=== PATIENT | female | born 1965 ===

== ENCOUNTER 2025-08-23 09:14 | Outpatient (CLI) | payer BC, SELFPAY ==
--- NOTE | ~2025-08-23 | US_ITS ---
EXAMINATION: US soft tissue abdomen DATE: 08/23/2025 09:32 INDICATION: Umbilical hernia. TECHNIQUE: Multiple grayscale and Doppler ultrasound images of the abdomen were obtained. COMPARISON: None FINDINGS: There is a small umbilical hernia. IMPRESSION: 1. Small umbilical hernia. Reviewed, dictated and finalized at location E. IMPRESSION: 1. Small umbilical hernia.
== END 2025-08-23 09:15 | disposition home or self-care (01) ==
DX: K42.9 Umbilical hernia without obstruction or gangrene (principal)
CPT/HCPCS: 76705